=== PATIENT | female | born 1975 | race Two or more races ===

== ENCOUNTER 2019-05-09 15:00 | Emergency (ER) | payer MEDICAID ==
[~2019-05-09] VITALS: Ht 165.1 cm; Wt 72.6 kg
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
[2019-05-09 16:41] VITALS: BP 138/85
[2019-05-09] MEDS ORDERED: ONDANSETRON ODT4 MG BC (17:30)
[2019-05-09] MEDS ORDERED: ROBAXIN-750750 MG PO (17:30)
[2019-05-09] MEDS ORDERED: IBUPROFEN600 MG ORAL (17:30)
--- NOTE | 2019-05-09 17:54 | NUR ---
ER DISCHARGE NOTE: Patient is cleared to be discharged per ERMD, pt is aox4, on room air, with stable vital signs. pt was given dc and prescription instructions by DAVID Barker, pt was able to verbalize understanding, pt id band removed without complications. pt is able to ambulate with steady gait. pt took all belongings.
== END 2019-05-09 17:33 | disposition home or self-care (01) ==
LOC: EDBD 15:00 → EMR 16:09
DX: S16.1XXA Strain of muscle, fascia and tendon at neck level, initial encounter (principal); R51 Headache; R11.2 Nausea with vomiting, unspecified; S60.222A Contusion of left hand, initial encounter; V43.52XA Car driver injured in collision with other type car in traffic accident, initial encounter; Y92.410 Unspecified street and highway as the place of occurrence of the external cause
CPT/HCPCS: 70450; 72125; 73130; 81025; Z7502; 99284